=== PATIENT | female | born 1950 | race Asian ===

== ENCOUNTER 2017-12-14 06:36 | Day surgery (SDC) | payer BC ==
[2017-12-14] MEDS ORDERED: LIDOCAINE 2% (SDV) 5 ML INJ (08:26)
[2017-12-14] MEDS ORDERED: FENTAnyl 50 MCG/ML VIAL (08:26)
[2017-12-14] MEDS ORDERED: PROPOFOL 20 ML (08:26)
== END 2017-12-14 11:46 | disposition home or self-care (01) ==
LOC: GIL 06:36
DX: Z12.11 Encounter for screening for malignant neoplasm of colon (principal); R10.13 Epigastric pain; E11.9 Type 2 diabetes mellitus without complications; K29.60 Other gastritis without bleeding; K29.80 Duodenitis without bleeding; K64.4 Residual hemorrhoidal skin tags; K57.30 Diverticulosis of large intestine without perforation or abscess without bleeding; I10 Essential (primary) hypertension; Z85.3 Personal history of malignant neoplasm of breast
CPT/HCPCS: 43239; 88305; 88312